=== PATIENT | female | born 1985 | race Caucasian/White ===

== ENCOUNTER 2017-05-08 23:02 | Emergency (ER) | payer MEDICAID ==
[~2017-05-08] VITALS: Ht 160 cm; Wt 45.4 kg
[2017-05-08 23:06] VITALS: BP 117/71
--- NOTE | 2017-05-08 23:14 | NUR ---
Patient ambulated to bed 06.
--- NOTE | 2017-05-08 23:20 | NUR ---
Dr. Spring evaluating patient at bedside.
--- NOTE | 2017-05-08 23:20 | NUR ---
31 Y/O F W/C/O L AND R FLANK PAIN X LAST 06/2016 GETTING WORSE AND NAUSEA. PT ALSO STATES HAS HAD FREQUENT AND URGENCY WITH URINATION X YESTERDAY. UNABLE TO PROVIDE URINE AT THE MOMENT.ER MADE AWARE.
[2017-05-08] MEDS ORDERED: MORPHINE SULFATE 4 MG/ML SYR IVP ONE (23:25)
[2017-05-08] MEDS ORDERED: ONDANSETRON 4 MG/2 ML VIAL IVP ONE (23:25)
[2017-05-08 23:46] LABS: PLATELET COUNT (AUTO) 192 K/uL (140-450)
[2017-05-08 23:51] LABS: HEMATOCRIT 41.3 % (36-48); HEMOGLOBIN 13.9 g/dL (12.0-16.0); MEAN CORPUSCULAR HEMOGLOBIN 34 pg (27-31); MEAN CORPUSCULAR HGB CONC 34 g/dL (33-37); MEAN CORPUSCULAR VOLUME 100 fL (80-94); RED BLOOD CELL COUNT(AUTO) 4.14 MIL/uL (4.20-5.40); RED CELL DISTRIBUTION WIDTH 12.1 % (11.6-13.7); WHITE BLOOD COUNT (AUTO) 9.1 K/uL (4.8-10.8)
[2017-05-08 23:57] LABS: BAND % (MANUAL) 4 % (0-8); EOSINOPHILS % (MANUAL) 3 % (0-4); LYMPHOCYTES % (MANUAL) 40 % (20-46); MONOCYTES % (MANUAL) 5 % (5-12); NEUTROPHILS % (MANUAL) 48 (43-65)
[2017-05-08 23:58] LABS: APPEARANCE,URINE CLEAR (CLEAR); BILIRUBIN,URINE NEGATIVE (NEGATIVE); BLOOD, URINE NEGATIVE (NEGATIVE); COLOR,URINE YELLOW (YELLOW); LEUKOCYTE ESTERASE ,URINE NEGATIVE (NEGATIVE); NITRITE, URINE NEGATIVE (NEGATIVE); PROTEIN,URINE NEGATIVE (NEGATIVE); UGLUCOSE NEGATIVE (NEGATIVE); UROBILINOGEN,URINE 0.2 EU/dL (0.2 - 1)
--- NOTE | 2017-05-09 00:02 | NUR ---
Patient taken to CT via wheelchair per tech.
[2017-05-09 00:05] LABS: ALBUMIN 4.5 g/dL (3.4-5.0); ANION GAP 13.5 (8-16); CALCIUM 9.6 mg/dL (8.5-10.1); CARBON DIOXIDE 26.5 mmol/L (21-32); CREATININE 0.8 mg/dL (0.6-1.3); TOTAL BILIRUBIN 0.2 mg/dL (0.0-1.0); TOTAL PROTEIN, SERUM 7.4 g/dL (6.4-8.2)
[2017-05-09 00:09] LABS: BACTERIA,URINE FEW /HPF (None Seen); RBC,URINE 0-5 (RARE) /HPF (0-5); WBC,URINE 0-5 (RARE) /HPF (0-5)
--- NOTE | 2017-05-09 00:12 | NUR ---
PT BACK FROM CT SCAN.
--- NOTE | 2017-05-09 00:22 | NUR ---
PT RESTING IN BED, VSS, C/O FLANK PAIN 04/03. ER MD MADE AWARE.
[2017-05-09] MEDS ORDERED: MORPHINE SULFATE 4 MG/ML SYR IVP ONE (00:25)
[2017-05-09] MEDS ORDERED: ONDANSETRON 4 MG/2 ML VIAL IVP ONE (00:35)
[2017-05-09] MEDS ORDERED: HYDROmorphone 1 MG/ML AMP IVP ONE ×2 (01:35→03:45)
--- NOTE | 2017-05-09 02:12 | NUR ---
US at bedside.
--- NOTE | 2017-05-09 03:00 | NUR ---
DILAUDID 0.5 MG IVP PER MD ORDER.
--- NOTE | 2017-05-09 03:55 | NUR ---
Patient discharged with v/s stable. Written and verbal after care instructions given and explained. Patient alert, oriented and verbalized understanding of instructions. Ambulatory with steady gait. All questions addressed prior to discharge. ID band removed. Patient advised to follow up with PMD. Rx of MOTRIN 600 MG, ROBAXIN 750 MG given. Patient educated on indication of medication including possible reaction and side effects. Opportunity to ask questions provided and answered.
[2017-05-09 03:56] VITALS: BP 109/76
== END 2017-05-09 03:55 | disposition home or self-care (01) ==
LOC: MED 23:02
DX: N83.202 Unspecified ovarian cyst, left side (principal); Z88.8 Allergy status to other drugs, medicaments and biological substances; Z90.710 Acquired absence of both cervix and uterus
CPT/HCPCS: 36415; 74176; 76856; 80053; 81001; 81025; 83690; 84703; 85025; 96374; 96375; 96376; 99285; J1170; J2270; J2405; Q0092; Q0163